=== PATIENT | male | born 1930 | race Hispanic/Latino ===

== ENCOUNTER 2017-12-16 09:06 | Day surgery (SDC) | payer MEDICARE ==
[~2017-12-16] VITALS: Ht 172.7 cm; Wt 70.4 kg
[2017-12-16] VITALS (12 sets, daily range): BP systolic 94–139; BP diastolic 61–78
[~2017-12-16 09:06] MED LIST: AMOX1TAB16 PO; MELO-108 PO; MULT-1081 PO; SODIUM CHLORIDE 0.9% 1000ML 1,000 ML IV ONE; TAMS0.4C32 PO; VITA1CAP85 PO
[2017-12-16] MEDS ORDERED: INDOMETHACIN 50 MG SUPP.RECT RC SCH (12:00)
[2017-12-16] MEDS ORDERED: PROPOFOL 10 MG/ML 20ML VIAL IV ONE ×3 (13:13→14:30)
[2017-12-16] MEDS ORDERED: GLYCOPYRROLATE 1 MG/5 ML SYRINGE ONE (13:14)
[2017-12-16] MEDS ORDERED: IOHEXOL-350 50ML VIAL IV ONE (13:17)
== END 2017-12-16 16:04 | disposition home or self-care (01) ==
LOC: ENDO 09:06 → DAH 09:06 → ENDO 16:04
PROVIDERS: ATTEND Internal Medicine Gastroenterology
DX: C24.1 Malignant neoplasm of ampulla of Vater (principal); K86.9 Disease of pancreas, unspecified; K83.8 Other specified diseases of biliary tract; K29.70 Gastritis, unspecified, without bleeding; M19.90 Unspecified osteoarthritis, unspecified site; R16.0 Hepatomegaly, not elsewhere classified; M77.9 Enthesopathy, unspecified; Z79.899 Other long term (current) drug therapy
CPT/HCPCS: 43238; 43261; 43274 ×2; 74330; 88173; 88304; 88305; A4606; C1769; C2625 ×2; J2704 ×3; J3490; J7030; Q9967